=== PATIENT | male | born 1950 | race Caucasian/White ===

== ENCOUNTER 2018-10-16 14:51 | Emergency (ER) | payer SELFPAY ==
[~2018-10-16] VITALS: Ht 167.6 cm; Wt 68.0 kg
[2018-10-16 14:52] VITALS: Ht 167.6 cm; Wt 68.0 kg
[2018-10-16 16:11] LABS: ALBUMIN 1.4 g/dL (3.4-5.0); ALKALINE PHOSPHATASE 367 U/L (46-116); ALT/SGPT 44 U/L (16-63); AST/SGOT 104 U/L (15-37); BILIRUBIN TOTAL 10.25 mg/dL (0.20-1.00); CALCIUM 7.6 mg/dL (8.5-10.1); CARBON DIOXIDE 22.4 mmol/L (21-32); CHLORIDE SERUM 91 mmol/L (98-107); CHOLESTEROL 65 mg/dL (<200); CREATININE SERUM 2.3 mg/dL (0.7-1.3); GFR1 30 mL/min; GLUCOSE SERUM 74 mg/dL (74-106); SODIUM SERUM 132 mmol/L (136-145); TOTAL PROTEIN, SERUM 6.3 g/dL (6.4-8.2)
[2018-10-16 16:13] LABS: POTASSIUM SERUM 2.7 mmol/L (3.5-5.1)
[2018-10-16 16:14] LABS: RED CELL DISTRIBUTION WIDTH 18.6 % (11.5-14.5)
[2018-10-16 16:17] LABS: PLATELET COUNT 29 x10^3mcL (130-400)
[2018-10-16 16:22] LABS: BAND NEUTROPHIL 7 % (0-10); BASOPHIL 0 % (0-2); MONOCYTE 2 % (0-7); SEGMENTED NEUTROPHILS 88 % (37-75)
[2018-10-16 16:24] LABS: rbc morphology (normal/abnorm) ABNORMAL (NORMAL)
[2018-10-16 18:18] LABS: UA SPECIFIC GRAVITY 1.025 (1.005-1.035); microscopic required? YES; urine erythrocyte 3+ (NEGATIVE)
[2018-10-16 20:49] VITALS: BP 116/70
== END 2018-10-16 20:49 | disposition short-term general hospital (02) ==
LOC: ED 14:51
PROVIDERS: Emergency Medicine
PROC: 0T9B70Z Drainage of Bladder with Drainage Device, Via Natural or Artificial Opening (ICD-10-PCS; principal; 2018-10-16)
PROC: 3E03329 Introduction of Other Anti-infective into Peripheral Vein, Percutaneous Approach (ICD-10-PCS; 2018-10-16)
PROC: 3E033GC Introduction of Other Therapeutic Substance into Peripheral Vein, Percutaneous Approach (ICD-10-PCS; 2018-10-16)
DX: R22.0 Localized swelling, mass and lump, head (principal); A41.9 Sepsis, unspecified organism; N39.0 Urinary tract infection, site not specified
CPT/HCPCS: G0480; J0696; J3480; J3490; J7030; Q0092